=== PATIENT | male | born 2000 | race Hispanic/Latino ===

== ENCOUNTER 2023-04-20 16:28 | Emergency (ER) | payer SELFPAY ==
[2023-04-20 16:36] VITALS: BP 161/98; PULSE 99; RESP 18; TEMP 36.6; O2SAT 96
--- NOTE | 2023-04-20 19:08 | ED.RN ---
pt preferred inturpreter assisitng in communication
[2023-04-20 19:21] VITALS: BMI 27.5
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
== END 2023-04-20 19:27 | disposition home or self-care (01) ==
PROVIDERS: Emergency Provider Student in an Organized Health Care Education/Training Program; Visit Provider Student in an Organized Health Care Education/Training Program
DX: T14.8XXA Other injury of unspecified body region, initial encounter (principal); V49.59XA Passenger injured in collision with other motor vehicles in traffic accident, initial encounter; Y92.410 Unspecified street and highway as the place of occurrence of the external cause
CPT/HCPCS: 99284